=== PATIENT | female | born 1980 | race Caucasian/White ===

== ENCOUNTER 2022-11-18 06:00 | Day surgery (SDC) | payer BC ==
[2022-11-17 15:04] LABS: HCG,QUAL RESULT NEGATIVE (NEGATIVE)
[~2022-11-18] VITALS: Ht 152.4 cm; Wt 56.7 kg
[2022-11-18] MEDS ORDERED: CIPROFLOXACIN HCL 0.3% EYE DRP 2.5 ML DROPS ONE (08:25)
[2022-11-18] MEDS ORDERED: DEXAMETHASONE SOD PHOS 0.1% EYE OR EAR DROPS ONE (08:25)
[2022-11-18] MEDS ORDERED: SEVOFLURANE 15 MIN GAS INH ONE (08:25)
[2022-11-18] MEDS ORDERED: PROPOFOL 200MG/ 20ML VIAL (DIPRIVAN) IV ONE (08:25)
[2022-11-18] MEDS ORDERED: LR 1,000 ML IV.SOLN IV ONE (08:25)
[2022-11-18] MEDS ORDERED: LABETALOL 100 MG/ 20ML VIAL IVP PRN (09:00)
[2022-11-18] MEDS ORDERED: IBUPROFEN 600 MG TABLET PO ONE (09:00)
[2022-11-18] MEDS ORDERED: METOCLOPRAMIDE HCL 10 MG/2 ML VIAL IVP PRN (09:00)
[2022-11-18] MEDS ORDERED: ONDANSETRON HCL 4 MG/2 ML VIAL IVP PRN ×2 (09:00→09:45)
[2022-11-18] MEDS ORDERED: KETOROLAC TROMETHAMINE 30 MG VIAL IVP PRN (09:00)
[2022-11-18] MEDS ORDERED: ONDANSETRON 4 MG ODT TAB PO PRN (09:45)
[2022-11-18] MEDS ORDERED: ACETAMINOPHEN 500 MG TABLET PO PRN (09:45)
[2022-11-18 15:53] VITALS: BP_SYST 111
== END 2022-11-18 11:30 | disposition home or self-care (01) ==
LOC: SDS 06:00
PROVIDERS: ATTEND Otolaryngology
DX: H65.492 Other chronic nonsuppurative otitis media, left ear (principal); H90.2 Conductive hearing loss, unspecified; Z20.822 Contact with and (suspected) exposure to COVID-19
CPT/HCPCS: 84703; 87081; 69436; 36415; 87426; J3490; J2704; J7120